=== PATIENT | male | born 1980 | race Hispanic/Latino ===

== ENCOUNTER → 2017-10-28 | Outpatient (CLI) | payer SELFPAY ==
[~2017-10-28] MED LIST: IOPAMIDOL 370 MG/ML 200 ML INFUS..BTL INJ ONE; SODIUM CHLORIDE 0.9% 50ML 50 ML ONE
--- NOTE | 2017-10-31 09:44 | Diagnostic Imaging Report ---
EXAM: CTA OF THE CHEST, ABDOMINAL AORTA AND PELVIC ARTERIES INDICATION: \[id number] \[id number] \S\ATYPICAL CHEST PAIN COMPARISON: None. TECHNIQUE: Multi-detector CT technology was employed. CTA of the abdomen and pelvis was performed after the administration of IV contrast. IV CONTRAST: 100 mL of Isovue-370 ORAL CONTRAST: None COMPLICATIONS: None RADIATION DOSE: Total DLP: 634.6 mGy*cm Estimated effective dose: (DLP x 0.015 x size factor) mSv CTDIvol has been reviewed. It is below the limits set by the Radiation Protocol Committee (RPC). For optimization of anatomic evaluation, multiplanar reconstruction, maximum intensity projections, and advanced 3-D off-line postprocessing were performed on a dedicated stand-alone workstation under the direct supervision of the interpreting physician. FINDINGS: Potential study limitations: None. VASCULAR WITH ADVANCED 3-D OFF-LINE POSTPROCESSING: Aortic valve morphology is trileaflet and contains no calcifications. The thoracic aorta is normal in course, caliber, and contour. There is no acute aortic pathology, such as dissection, intramural hematoma, or contained rupture. Aortic plaques: None. The arch vessel branching pattern is conventional. All of the arch branch vessels appear widely patent in their proximal portions. The abdominal aorta is normal in course, caliber, and contour. There is no acute aortic pathology . Aortic plaques: None. Practice Administrator dimensions of the thoracic aorta are as follows: 2.2 cm at the aortic annulus 3.7 x 3.7 cm at the sinuses of Valsalva (the sinotubular junction is preserved) 2.3 cm at the mid ascending aorta 2.8 cm at the distal ascending aorta 2.4 cm at the mid transverse arch 2.1 cm at the proximal descending thoracic aorta 2.2 cm at the diaphragmatic hiatus. The abdominal aorta measures: 2.2 cm at the supramesenteric segment 2.2 cm at the mesenteric segment 1.8 cm at the renal segment 1.6 cm at the mid infrarenal segment 1.6 cm at the aortic bifurcation. Common ostium of the celiac trunk and SMA. The celiac axis, SMA, and ASIA are patent. There are single renal arteries bilaterally, both of which appear patent. The pelvic arteries are normal in caliber and contour. There are no atherosclerotic changes of the pelvic arteries. 0.8 cm at the right common iliac artery 0.8 cm at the right external iliac artery 0.7 cm at the left common iliac artery 0.8 cm at the left external iliac artery LUNGS AND AIRWAYS: Lungs are clear. Airways are patent. PLEURA: The pleural spaces are clear. HEART AND MEDIASTINUM: The thyroid gland is normal. No mediastinal, hilar or axillary lymphadenopathy. The main pulmonary artery is normal in size. The cardiac chambers demonstrate normal atrioventricular and ventriculoarterial concordance, and systemic and pulmonary venous return. The cardiac chambers are normal in size. The coronary arteries have normal origins and courses. There are no distinct coronary calcifications identified, though this study was not optimized for coronary artery evaluation. There is no pericardial effusion. ABDOMEN: The liver, gallbladder, spleen, and pancreas appear normal. The right adrenal gland appears normal. Nodular thickening of the left adrenal gland may relate to adrenal gland hyperplasia. Both kidneys are normal in size, shape, and density. There is no abnormal mass or hydronephrosis. PELVIS: There is no significant retroperitoneal adenopathy. No free fluid or free air within the abdomen or pelvis. The bowel appears unremarkable. The urinary bladder appears normal. BONES: Unremarkable IMPRESSION: 1. Normal thoracic aorta. No acute aortic pathology identified. 2. Normal abdominal aorta. No acute abdominal aortic pathology. 3. Nodular thickening of the left adrenal gland may relate to adrenal gland hyperplasia. Signed by: Dr. Anabel Isaacs M.D. on 10/31/2017 9:40 AM
== END ==
LOC: CT 08:27
PROVIDERS: ATTEND Internal Medicine Cardiovascular Disease
DX: R07.89 Other chest pain (principal)
CPT/HCPCS: 71275; 74174; Q9967